=== PATIENT | female | born 1980 | race Caucasian/White ===

== ENCOUNTER 2017-06-23 17:46 | Emergency (ER) | payer SELFPAY ==
[2017-06-23 18:16] VITALS: BP 136/89
[2017-06-23] MEDS ORDERED: IBUPROFEN 600 MG TABLET PO ONE (19:05)
[2017-06-23] MEDS ORDERED: LIDOCAINE 5% (700 MG) TRANSDERMAL ADH..PATCH TP ONE (19:05)
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
--- NOTE | 2017-06-23 19:38 | RADIOLOGY REPORT (SQ) ---
EXAM DESCRIPTION: L SPINE WHOLE COMPLETED DATE/TIME: 06/23/2017 7:24 pm REASON FOR STUDY: low back pain since fall COMPARISON: None. NUMBER OF VIEWS: Five views including obliques. TECHNIQUE: AP, lateral, oblique, and sacral radiographic images acquired of the lumbar spine. LIMITATIONS: None. FINDINGS: MINERALIZATION: Normal. SEGMENTATION: Normal. No transitional anatomy. ALIGNMENT: Normal. VERTEBRAE: Maintained height. No fracture or worrisome bone lesion. DISCS: Preserved height. No significant osteophytes or end plate irregularity. POSTERIOR ELEMENTS: Pedicles and facets are intact. No pars defect or posterior arch defects. HARDWARE: None in the spine. PARASPINAL SOFT TISSUES: Normal. PELVIS: Intact as visualized. No fractures or worrisome bone lesions. SI joints intact. OTHER: No other significant finding. IMPRESSION: NORMAL 5 VIEW LUMBAR SPINE. TECHNICAL DOCUMENTATION: JOB ID: [id number] [employer]- All Rights Reserved
== END 2017-06-23 19:59 | disposition home or self-care (01) ==
LOC: ER 17:46
DX: M54.42 Lumbago with sciatica, left side (principal); G89.29 Other chronic pain; Y09 Assault by unspecified means; J45.909 Unspecified asthma, uncomplicated; Z87.81 Personal history of (healed) traumatic fracture
CPT/HCPCS: 72110; 99283

== ENCOUNTER 2017-12-13 10:55 | Emergency (ER) | payer SELFPAY ==
[2017-12-13 11:02] VITALS: BP 112/87
--- NOTE | 2017-12-13 11:54 | RADIOLOGY REPORT (SQ) ---
EXAM DESCRIPTION: FOOT RIGHT COMPLETE; ANKLE RIGHT COMPLETE COMPLETED DATE/TIME: 12/13/2017 11:44 am REASON FOR STUDY: rt ankle/foot pain COMPARISON: None. NUMBER OF VIEWS: Six views. TECHNIQUE: AP, lateral and oblique radiographic images acquired of the right ankle and right foot. LIMITATIONS: None. FINDINGS: MINERALIZATION: Normal. BONES: No acute fracture or dislocation. No worrisome bone lesions. JOINTS: No effusions. SOFT TISSUES: No soft tissue swelling. No foreign body. OTHER: No other significant finding. IMPRESSION: NO RADIOGRAPHIC EVIDENCE OF ACUTE INJURY. TECHNICAL DOCUMENTATION: JOB ID: [id number] [employer]- All Rights Reserved
--- NOTE | 2017-12-13 11:54 | RADIOLOGY REPORT (SQ) ---
EXAM DESCRIPTION: FOOT RIGHT COMPLETE; ANKLE RIGHT COMPLETE COMPLETED DATE/TIME: 12/13/2017 11:44 am REASON FOR STUDY: rt ankle/foot pain COMPARISON: None. NUMBER OF VIEWS: Six views. TECHNIQUE: AP, lateral and oblique radiographic images acquired of the right ankle and right foot. LIMITATIONS: None. FINDINGS: MINERALIZATION: Normal. BONES: No acute fracture or dislocation. No worrisome bone lesions. JOINTS: No effusions. SOFT TISSUES: No soft tissue swelling. No foreign body. OTHER: No other significant finding. IMPRESSION: NO RADIOGRAPHIC EVIDENCE OF ACUTE INJURY. TECHNICAL DOCUMENTATION: JOB ID: [id number] [employer]- All Rights Reserved
--- NOTE | 2017-12-13 12:58 | ER Document Report ---
ED Extremity Problem, Lower - General Chief Complaint: Ankle Pain Stated Complaint: FALL/ANKLE PAIN Mode of Arrival: Ambulatory Information source: Patient TRAVEL OUTSIDE OF THE [place] IN LAST 30 DAYS: No - HPI Notes: 37-year-old female presents today with complaints of right ankle pain s/p falling x 6 hours ago because she tripped while getting out of bed. denies head trauma or change inloc. pain 5/10, achy. unable to bear full weight. pain is progressive and constant. Denies any n/t in ankle. denies any otc medications. tried some icing. resting makes better, worse with movement of leg. Denies any cp, sob, n/v/d, abd pain, dysuria and hematuria. E - Related Data Allergies/Adverse Reactions: No Known Allergies Allergy (Verified 12/13/17 10:57) Past Medical History - General Information source: Patient, Friend - Social History Smoking Status: Unknown if Ever Smoked Family History: Reviewed & Not Pertinent Patient has suicidal ideation: No Patient has homicidal ideation: No Pulmonary Medical History: Reports: Hx Asthma Neurological Medical History: Reports: Hx Migraine Renal/ Medical History: Denies: Hx Peritoneal Dialysis Musculoskeltal Medical History: Reports Hx Musculoskeletal Deformity, Reports Hx Musculoskeletal Trauma Psychiatric Medical History: Reports: Hx Anxiety, Hx Bipolar Disorder, Hx Depression Traumatic Medical History: Reports: Hx Fractures - Coccyx as a child fifth finger and both fifth toes Past Surgical History: Reports: Hx Section, Hx Tonsillectomy, Hx Tubal Ligation - Immunizations Hx Diphtheria, Pertussis, Tetanus Vaccination: Yes Review of Systems - Review of Systems Constitutional: No symptoms reported EENT: No symptoms reported Cardiovascular: No symptoms reported Respiratory: No symptoms reported Gastrointestinal: No symptoms reported Genitourinary: No symptoms reported Female Genitourinary: No symptoms reported Musculoskeletal: See HPI Skin: No symptoms reported Hematologic/Lymphatic: No symptoms reported Neurological/Psychological: No symptoms reported Physical Exam - Vital signs Vitals: Temp Pulse Resp BP Pulse Ox 98.8 F 94 18 112/87 H 100 12/13/17 11:00 12/13/17 11:00 12/13/17 11:00 12/13/17 11:00 12/13/17 11:00 Interpretation: Normal - Notes Notes: PHYSICAL EXAMINATION: GENERAL: Well-appearing, well-nourished and in no acute distress. HEAD: Atraumatic, normocephalic. EYES: Pupils equal round and reactive to light, extraocular movements intact, conjunctiva are normal. ENT: Nares patent, oropharynx clear without exudates. Moist mucous membranes. NECK: Normal range of motion, supple without lymphadenopathy LUNGS: Breath sounds clear to auscultation bilaterally and equal. No wheezes rales or rhonchi. HEART: Regular rate and rhythm without murmurs ABDOMEN: Soft, nontender, nondistended abdomen. No guarding, no rebound. No masses appreciated. Female : deferred Musculoskeletal: Normal range of motion, no pitting or edema. No cyanosis. left ankle with swelling, tenderness on lateral aspect of ankle. pain with inversion. squeeze test negative. dtr +2 BLE. Limited APROM. distal pulses + 2 BLE equally. Full motor and sensory function of bilateral lower extremities. No noted open wounds or abrasion. Normal gait. No vascular compromise. Peroneal nerve is intact with strong eversion and plantar flexion. Negative anterior drawer test. NEUROLOGICAL: Cranial nerves grossly intact. Normal speech, normal gait. Normal sensory, motor exams PSYCH: Normal mood, normal affect. SKIN: Warm, Dry, normal turgor, no rashes or lesions noted. Course - Re-evaluation Re-evalutation: 12/13/17 13:08 Discussed with patient the x-ray was negative, advised to alternate between Tylenol and ibuprofen, elevate above level of heart or swelling, where Aircast, crutches the patient does not bear full weight on it. Advised to apply heat 20 minutes on 20 minutes off several times a day. Follow-up with program development specialist within 1 week as needed. Return if pain and ankle pain is still bothersome for possible re-x-ray. Patient verbalized understanding of these instructions and agree with plan of care. Patient was discharged home. - Vital Signs Vital signs: Temp Pulse Resp BP Pulse Ox 98.8 F 94 18 112/87 H 100 12/13/17 11:00 12/13/17 11:00 12/13/17 11:00 12/13/17 11:12/13/17 11:00 Discharge - Discharge Clinical Impression: Right ankle sprain Qualifiers: Encounter type: initial encounter Involved ligament of ankle: calcaneofibular ligament Qualified Code(s): S93.411A - Sprain of calcaneofibular ligament of right ankle, initial encounter Condition: Good Disposition: HOME, SELF-CARE Instructions: Splint Precautions ([facility]), Sprained Ankle ([facility]) Additional Instructions: Ankle Stirrup Splint You are to use an ankle brace called a stirrup splint. This type of brace allows you to place greater stresses on the ankle without risk of re-injury, and is often used for more severe ankle injuries such as avulsion fractures and ligament ruptures. The splint can be worn over a sock or tape. For proper support, wear the splint with a shoe over it. It's important that the splint fit properly. Adjust the heel tension, if needed. If your splint has air bladders, peel back the bottom of each air bladder, then move the Velcro attachment of the heel strap up or down. Air bladder pressure can be adjusted by pulling up the valve at the top, threading the air tube down into the main bladder, then blowing air into the bladder or squeezing it out. The two sides of the stirrup can be moved forward or back on your ankle by changing the attachment of the main straps. If you are unable to use the ankle comfortably in the splint, return for re -evaluation. SPRAIN: Your injury is a sprain. A sprain results from stretching or tearing of the ligaments, usually from a twisting injury. The ligaments will require time and protection in order to heal properly. Many sprains are quite disabling and should be taken seriously. The usual initial treatment of sprains is cold packs, elevation, and rest of the injured area. Your physician has assessed the seriousness of your ligament injury, and has outlined a treatment plan. Understand that this treatment may change, depending on how you progress. If a re-examination was recommended, it is important that you follow up as instructed. Call the doctor any time if there is severe pain, numbness, or loss of function in the injured area. SHANNAN WRAP: A compression dressing (shannan wrap) has been placed. This helps hold the area still. It limits swelling and internal bleeding. The wrap should be comfortably snug -- not tight. You should feel a sense of pressure, but not severe pain under the wrap. Unless the physician tells you otherwise, you can adjust the wrap for comfort. If the wrap causes symptoms suggesting it's too tight -- uncomfortable pressure, swelling or discoloration beyond the wrap, numbness, or severe pain - - you must loosen the wrap. If these symptoms don't resolve promptly, return for re-evaluation. SPLINT PRECAUTIONS: A splint has been placed. This will protect the area while healing begins. Your problem does NOT normally require a cast. It MUST, however, be held still! Keep the splint on ALL THE TIME until instructed to remove it by the doctor. As you begin to use the area, be careful. You shouldn't do anything which causes discomfort -- you may disturb the injury even with the splint in place. After the initial period of rest and elevation, if splint does not prevent pain when you move, come back. You may require placement of a different splint , or a cast. If there is unexpected severe pain, or numbness, discoloration, or swelling beyond the splint, you should return at once. If you feel that the splint has broken or become loose, come back. SPRAINED ANKLE: Your sprained ankle results from stretching or tearing of the ligaments which support the ankle. This usually results from twisting the foot inward and under. The ligaments will require time and protection in order to heal properly. Many ankle sprains are quite disabling, and should be taken seriously. The usual treatment for an ankle sprain is cold packs; protection with tape , splints, or wraps; elevation; and staying off the ankle for at least a day. As the ankle improves, you can walk IF it's not painful to bear weight. Sports are best postponed until healing is complete. More serious sprains usually require strengthening exercises after early healing. Your physician has assessed the seriousness of the ligament injury to your ankle. However, the treatment may change, depending on how your ankle progresses. If further exams were recommended, it is important that you follow through. Call the doctor if your foot becomes numb, painful, or severely swollen. ANKLE STIRRUP SPLINT: You are to use an ankle brace called a stirrup splint. This type of brace allows you to place greater stresses on the ankle without risk of re-injury, and is often used for more severe ankle injuries such as avulsion fractures and ligament ruptures. The splint can be worn over a sock or tape. For proper support, wear the splint with a shoe over it. It's important that the splint fit properly. Adjust the heel tension, if needed. If your splint has air bladders, peel back the bottom of each air bladder, then move the Velcro attachment of the heel strap up or down. Air bladder pressure can be adjusted by pulling up the valve at the top, threading the air tube down into the main bladder, then blowing air into the bladder or squeezing it out. The two sides of the stirrup can be moved forward or back on your ankle by changing the attachment of the main straps. If you are unable to use the ankle comfortably in the splint, return for re -evaluation. USE OF CRUTCHES: The doctor has recommended that you not bear weight at this time. You will need to use crutches. Adjust the crutches so the tops come to about two inches under the armpit while you are standing upright. Use your hands -- not your armpits -- to support your weight. To get into a chair, support yourself with one crutch on the injured side. Hold the chair with the other hand, then lower yourself while putting all your weight on the good leg. Going up stairs is `good leg up, step up, then bring up crutches and bad leg.' Down stairs is `bad leg and crutches down, then bring good leg down.' If you develop numbness or swelling in an arm or hand, you are using the crutches incorrectly. Return if you are having any problems with the crutches. ICE & ELEVATION: Apply ice packs frequently against the painful area. Many different schedules are recommended, such as "20 minutes on, 20 minutes off" or "one hour ice, two hours rest." If you need to work, you may need to go longer between ice treatments. You should plan to have the area ice packed AT LEAST one- fourth of the time. The ice should be applied over the wrap, tape, or splint, or over a layer of cloth -- not directly against the skin. Some ice bags have a built-in cloth and can be put directly on the skin. Your injured part should be elevated as much as possible over the next 48 hours. Try to keep the injury above the level of the heart. Avoid use of the injured area. Elevation and rest will decrease the swelling. FOLLOW-UP CARE: If you have been referred to a physician for follow-up care, call the physician s office for an appointment as you were instructed or within the next two days. If you experience worsening or a significant change in your symptoms, notify the physician immediately or return to the Emergency Department at any time for re-evaluation. Please follow up with the Orthopedics [facility] [address] [place] [phone] Return immediately for any new or worsening symptoms. Follow up with primary care provider, call tomorrow to make followup appointment. Referrals: MEIR NOLEN MD [ACTIVE STAFF] - Follow up in 1 week
== END 2017-12-13 13:52 | disposition home or self-care (01) ==
LOC: ER 10:55
DX: S93.411A Sprain of calcaneofibular ligament of right ankle, initial encounter (principal); W19.XXXA Unspecified fall, initial encounter; Y93.89 Activity, other specified; J45.909 Unspecified asthma, uncomplicated
CPT/HCPCS: 99283; 73610; 73630; L1902

== ENCOUNTER 2020-10-19 17:05 | Emergency (ER) | payer SELFPAY ==
[2020-10-19 17:10] VITALS: BP 152/91
--- NOTE | 2020-10-19 17:24 | ER Document Report ---
ED Medical Screen (RME) - General Chief Complaint: Rectal Pain Stated Complaint: RECTAL PAIN Time Seen by Provider: 10/19/20 17:17 Mode of Arrival: Ambulatory Information source: Patient Notes: 40-year-old female presented to ED for rectal pain that started this morning. She states she is bleeding she changed her pants twice and now she has a sanitary pad on for the bleeding. She states she has had a hip history of hemorrhoids in the past but never as bad as this that never is the same pain before. She states she does smoke three fourths of to a pack per day. I have greeted and performed a rapid initial assessment of this patient. A comprehensive ED assessment and evaluation of the patient, analysis of test results and completion of medical decision making process will be conducted by an additional ED providers. TRAVEL OUTSIDE OF THE [place] IN LAST 30 DAYS: No - Related Data Allergies/Adverse Reactions: No Known Allergies Allergy (Verified 12/13/17 10:57) Past Medical History - General Information source: Patient - Social History Cigarette use (# per day): Yes Frequency of alcohol use: None Drug Abuse: None Lives with: Spouse/Significant other Family history: Reviewed & Not Pertinent - Past Medical History Cardiac Medical History: Reports: None Pulmonary Medical History: Reports: Hx Asthma EENT Medical History: Reports: None Neurological Medical History: Reports: Hx Migraine Endocrine Medical History: Reports: Hx Diabetes Mellitus Type 2 Renal/ Medical History: Reports: None Malignancy Medical History: Reports: None GI Medical History: Reports: Other - Hemorrhoids Musculoskeltal Medical History: Reports Hx Musculoskeletal Deformity, Reports Hx Musculoskeletal Trauma Skin Medical History: Reports None Psychiatric Medical History: Reports: Hx Anxiety, Hx Bipolar Disorder, Hx Depression Traumatic Medical History: Reports: Hx Fractures - Coccyx as a child fifth finger and both fifth toes Infectious Medical History: Reports: None Past Surgical History: Reports: Hx Section, Hx Tonsillectomy, Hx Tubal Ligation - Immunizations Immunizations up to date: Yes Hx Diphtheria, Pertussis, Tetanus Vaccination: Yes - 2019 Physical Exam - Vital signs Vitals: Temp Pulse Resp BP Pulse Ox 97.5 F 99 16 152/91 H 100 10/19/20 17:09 10/19/20 17:09 10/19/20 17:09 10/19/20 17:09 10/19/20 17:09 Course - Vital Signs Vital signs: Temp Pulse Resp BP Pulse Ox 97.5 F 99 16 152/91 H 100 10/19/20 17:09 10/19/20 17:09 10/19/20 17:09 10/19/20 17:09 10/19/20 17:09
== END 2020-10-19 19:25 | disposition left against medical advice (07) ==
LOC: ER 17:05
DX: K62.89 Other specified diseases of anus and rectum (principal); E11.9 Type 2 diabetes mellitus without complications; Z98.51 Tubal ligation status
CPT/HCPCS: 99281